=== PATIENT | female | born 1990 | race Caucasian/White ===

== ENCOUNTER 2018-07-02 08:47 | Emergency (ER) | payer BC ==
[2018-07-02 08:59] VITALS: TEMP 98.2; BMI 30.6
[2018-07-02] MEDS ORDERED: ACETAMINOPHEN 325 MG TABLET (FP) PO ONE (09:28)
--- NOTE | 2018-07-02 09:33 | PDOC ---
History of Present Illness - General Chief Complaint: Pain, Acute Stated Complaint: 19 WEEKS PREG/ CEST PAIN/DOWN THE ARM - History of Present Illness Initial Comments: The patient is a 27F at 19w by LMP with no other reported PMH who presents with 1d of L shoulder pain. The patient reports that the pain started yesterday at 2000. The pain began as L shoulder blade pain that then migrated towards her chest and now is isolated to her L shoulder. She states that her pain is currently intermittently sharp but mostly achy over her anterior shoulder and radiates towards her elbow. She reports that it feels similar to muscle soreness /similar to how it would feel if she slept on it wrong. She denies AGUILERA, vision changes, current chest pain, SOB, abdominal pain, N/V/C/D , or changes in sensation Patient mostly concerned that she may be having a cardiac event. 07/02/18 09:28 Past History - Past Medical History Allergies/Adverse Reactions: Allergies Allergy/AdvReac Type Severity Reaction Status Date / Time No Known Allergies Allergy Verified 07/02/18 08:53 Home Medications: Ambulatory Orders NK [No Known Home Medication] 07/02/18 COPD: No Other medical history: EDC 11/24/2018 - Reproductive History Is Patient Now?: Yes (#): 3 Para: 2 - Suicide/Smoking/Psychosocial Hx Smoking History: Never smoked Hx Alcohol Use: No Drug/Substance Use Hx: No Review of Systems - Review of Systems Able to Perform ROS?: Yes Comments:: GENERAL/CONSTITUTIONAL: No fever or chills. No weakness HEAD, EYES, EARS, NOSE AND THROAT: No change in vision. No ear pain or discharge. No sore throat CARDIOVASCULAR: No chest pain or shortness of breath RESPIRATORY: No cough, wheezing, or hemoptysis GASTROINTESTINAL: No nausea, vomiting, diarrhea or constipation GENITOURINARY: No dysuria, frequency, or change in urination MUSCULOSKELETAL: per HPI SKIN: No rash NEUROLOGIC: No headache, vertigo, loss of consciousness, or change in strength/ sensation ENDOCRINE: No increased thirst. No abnormal weight change HEMATOLOGIC/LYMPHATIC: No anemia, easy bleeding, or history of blood clots ALLERGIC/IMMUNOLOGIC: No hives or skin allergy 07/02/18 09:34 Is the patient limited Uzbek proficient: No *Physical Exam - Vital Signs Last Vital Signs Temp Pulse Resp BP Pulse Ox 98.2 F 70 18 129/74 99 07/02/18 08:54 07/02/18 08:54 07/02/18 08:54 07/02/18 08:54 07/02/18 08:54 - Physical Exam Comments: GENERAL: Awake, alert, and fully oriented, in no acute distress HEAD: No signs of trauma, normocephalic, atraumatic EYES: PERRLA, EOMI, sclera anicteric, conjunctiva clear ENT: Auricles normal inspection, hearing grossly normal, nares patent, oropharynx clear without exudates. Moist mucosa NECK: Normal ROM, supple, no lymphadenopathy LUNGS: No distress, speaks full sentences, clear to auscultation bilaterally HEART:Regular rate and rhythm, normal S1 and S2, no murmurs appreciated, peripheral pulses normal and equal bilaterally ABDOMEN: Soft, nontender, normoactive bowel sounds. No guarding, no rebound. No masses EXTREMITIES : Normal inspection, Normal range of motion, no edema. No clubbing or cyanosis NEUROLOGICAL: Cranial nerves II through XII grossly intact. Normal speech, normal gait, no focal sensorimotor deficits SKIN: Warm, Dry, normal turgor, no rashes or lesions noted 07/02/18 09:36 ED Treatment Course - LABORATORY CBC & Chemistry Diagram: 07/02/18 09:52 07/02/18 09:52 Medical Decision Making - Medical Decision Making The patient is a 27F at [address] [facility] who presents with left shoulder pain and is concerned about having a cardiac event. ED Course The patient's HEART score is 0 Will check CMP, CBC, Trop I and ECG Patient not short of breath, denies current chest pain 07/02/18 09:47 Trop I neg No leukocytosis Patient non-tachycardic, not tachypnic or short of breath Plan for DC home w/ OB f/u Patient in agreement with plan and verbalizes understanding Dispo: home 07/02/18 11:06 *DC/Admit/Observation/Transfer Diagnosis at time of Disposition: Shoulder pain, left Qualifiers: Chronicity: acute Qualified Code(s): M25.512 - Pain in left shoulder - Discharge Dispostion Disposition: HOME Condition at time of disposition: Stable Decision to Admit order: No - Referrals Referrals: [facility] [place] [Provider Group] Dr Eduardo [Other] - Patient Instructions Printed Discharge Instructions: DI for Shoulder Pain - Post Discharge Activity
[2018-07-02] MEDS ORDERED: ACETAMINOPHEN 325 MG TABLET (FP) ONE (09:34)
[2018-07-02 09:58] LABS: HEMATOCRIT 33.4 % (32.4-45.2); HEMOGLOBIN 11.8 GM/dL (10.7-15.3); MCH 32.4 pg (25.7-33.7); MCHC 35.2 g/dl (32.0-36.0); MEAN PLT VOLUME 7.9 fl (7.5-11.1); PLATELET COUNT 284 K/MM3 (134-434); RBC 3.63 M/mm3 (3.60-5.2); RDW 12.5 % (11.6-15.6); WHITE BLOOD COUNT 8.6 K/mm3 (4.0-10.0)
--- NOTE | 2018-07-02 09:58 | PDOC ---
Attending Attestation - HPI HPI: The patient is a 27 year old female, with no significant PMHx, who is 19 weeks , and presents to the ER with chest pain since last night. Patient states that since 8:00 pm last night she has been experiencing left-sided shoulder blade pain which she states has migrated to the left side of her chest. She also states that her left shoulder pain radiates anteriorly toward her elbow. She describes the shoulder pain as sharp yet achy, and states it is not exacerbated with palpation. She denies any recent injury. She denies experiencing this kind of pain before. She states that it "kind of feels like when you sleep on a part of your body wrong" but does not recall that happening. She states that she took Ibuprofen last night with some relief and was given Tylenol today here in the ER. Allergies: NKDA <Henry Perezina - Last Filed: 07/02/18 10:13> - Resident Resident Name: Kai Carlos - ED Attending Attestation I have performed the following: I have examined & evaluated the patient, The case was reviewed & discussed with the resident, I agree w/resident's findings & plan, Exceptions are as noted - Physicial Exam PE: 07/02/18 11:39 Vitals: Triage Vital signs reviewed General Appearance: no acute distress, well nourished well developed, Head: Atraumatic, Neck: Supple;No Nucal rigidity Chest Wall: Nontender Cardiac: Regular rate and rhythym, no murmurs, no rubs, no gallops, Lungs: Clear to auscultation bilateral, good air movement bilaterally, Abdomen: Soft, non distended, normal bowel sounds, non tender to palpation Extremities: Full range of motion to all extremities, no cyanosis, clubbing, or edema Skin: Warm and dry, no rashes or lesions, no rash, no petechiae Psych: normal mood, normal affect - Medical Decision Making 07/02/18 11:39 Nonischemic EKG atypical discomfort no signs or symptoms at this time of PE no respiratory complaints simply left shoulder discomfort which started in her back nonradiating Status post Tylenol patient feels better last within normal limits troponin negative heart score 1. No indication at this time for further workup for PE however should the patient' s pain become worse the associate with any shortness of breath or chest discomfort patient return to the emergency department for further evaluation <Cam Ramos - Last Filed: 07/02/18 11:41> Heart Score/ECG Review - History History: Slightly suspicious - Electrocardiogram EKG: Normal - Age Age: </= 45 - Risk Factors Based on the list above the patient has:: No risk factors known - Troponin Troponin: </= normal limit - Score Heart Score - Total: 0 <Cam Ramos - Last Filed: 07/02/18 11:41>
[2018-07-02 10:31] LABS: ALBUMIN 2.9 g/dl (3.4-5.0); ANION GAP 12 MMOL/L (8-16); BILIRUBIN,TOTAL 0.1 mg/dL (0.2-1.0); BLOOD UREA NITROGEN 6 mg/dL (7-18); CALCIUM 8.4 mg/dL (8.5-10.1); CHLORIDE 108 mmol/L (98-107); CO2 21 mmol/L (21-32); CREATININE 0.2 mg/dL (0.55-1.3); GLUCOSE,RANDOM 81 mg/dL (74-106); POTASSIUM 3.8 mmol/L (3.5-5.1); SGOT/AST 10 U/L (15-37); SGPT/ALT 14 U/L (13-61); SODIUM 141 mmol/L (136-145); TOT PROT 6.7 g/dl (6.4-8.2)
[2018-07-02 10:34] LABS: ALK PHOS 68 U/L (45-117)
[2018-07-02 11:15] VITALS: BP 120/69; PULSE 82
--- NOTE | 2018-07-02 14:32 | EKG ---
Test Reason : Blood Pressure : / mmHG Vent. Rate : 066 BPM Atrial Rate : 066 BPM P-R Int : 152 ms QRS Dur : 082 ms QT Int : 390 ms P-R-T Axes : 015 021 009 degrees QTc Int : 408 ms NORMAL SINUS RHYTHM CANNOT RULE OUT ANTERIOR INFARCT , AGE UNDETERMINED ABNORMAL ECG NO PREVIOUS ECGS AVAILABLE Confirmed by DAMIR CHENG MD ([id number]) on 07/02/2018 2:32:27 PM Referred By: Confirmed By:DAMIR CHENG MD
== END 2018-07-02 11:16 | disposition home or self-care (01) ==
LOC: JER 08:47
DX: O26.892 Other specified pregnancy related conditions, second trimester (principal); Z3A.19 19 weeks gestation of pregnancy; M25.512 Pain in left shoulder
CPT/HCPCS: 36415; 80053; 84484; 85027; 93005; 93010; 99284-25